=== PATIENT | female | born 1975 | race Caucasian/White ===

== ENCOUNTER 2018-02-17 06:50 | Observation (INO) | payer OTHER ==
[~2018-02-17] VITALS: Ht 165.1 cm; Wt 111.1 kg
[~2018-02-17 06:50] MED LIST: ACETAMINOPHEN-1 EAC1 PO; ASPIRIN EC81 MG PO; ATORVASTATIN CA40 MG PO; BELVIQ10 MG PO; CALCIUM600 MG PO; CELEBREX200 MG PO; GABAPENTIN400 MG PO; IRON325 M1 PO; KONDREMUL2.5 ML/5 M PO; MICARDIS HCT 41 EACH PO; MOTRIN IB200 MG PO; MULTIVITAMINS1 EAC7 PO; NORCO 5-325 TA1 EACH PO; PERCOCET 5-3251 EACH PO; SENNA8.6 MG PO; SIMVASTATIN10 MG PO; SIMVASTATIN40 MG PO; TELMISARTAN-HC1 EAC2 PO; TRAZODONE HCL50 MG PO; VITAMIN C1000 MG PO; VITAMIN D2000 UNI1 PO; VOLTAREN100 GM TOP
[2018-02-17] MEDS ORDERED: PHENTERMINE H37.5 MG PO (07:08)
--- NOTE | 2018-02-17 10:13 | NUR ---
PT ALERT, ORIENTED AND SUPPORTED BY HER SIG. OTHER MICHAEL. SHE SEEMED PREPARED FOR TODAY-EVEN WATCHED A VIDEO OF THE SURGERY. SHE IS LOOKING FORWARD TO LIFE WITH LESS PAIN AND MORE MOBILITY. HAVING BI-LATERAL KNEE REPLACEMENT. PT REQUESTED PRAYER, WILL FOLLOW NEEDED
--- NOTE | 2018-02-17 11:47 | NUR ---
02/17/18 1147 Dillan Lucio REORIENTED PT TO TIME AND SITUATION. DENIES NAUSEA OR PAIN. WARM BLANKTES REMOVED FROM PT AT THIS TIME SHE IS RED AND TEMP IS ELEVATED.
--- NOTE | 2018-02-17 13:10 | NUR ---
PT ARRIVED TO FLOOR FROM PACU, RECEIVE BEDSIDE REPORT FROM NATY PIERCE. PT IS VERY DROWSY BUT ORIENTED TO ALL. RT PRESENT IN ROOM TO APPLY BIPAP MACHINE PT IS HAVING APENEIC EPISODES PER PACU NURSE. PT TOLERATING BIPAP MASK WELL, SATTING 98% ON 38% FIO2, RESP 10-14. PT DENIE PAIN, NAUSEA OR OTHER CONCERNS. PT REPORTS SENSATION ALL THE WAY TO TIPS OF TOES, GOOD MOVEMENT NOTED, CAP REFILL 3, STRONG PEDAL PULSE BILATERALLY. DRESSING CDI BILATERALLY, TEDS, SCD'S, AND CRYOCUFFS IN PLACE. IV INFUSING IN RIGHT HAND WNL, FLUSHES EASILY. PT AT BEDSIDE. CALL LIGHT WITHIN REACH.
--- NOTE | 2018-02-17 14:15 | NUR ---
PT RESTING IN BED WITH EYES CLOSED, BIPAP ON SATTING 98%. PT WAKES EASILY. DENIES NEEDS OR CONCERNS AT THIS TIME. AT BEDSIDE.
--- NOTE | 2018-02-17 15:47 | NUR ---
PT OFF BIPAP AT THIS TIME PER REQUEST, PT MORE AWAKE AND ALERT. SATTING 91% ON 3LNC. PT DENIES PAIN OR OTHER CONCERNS. WORKING WITH P.T. AT THIS TIME, LUCIANA WELL. AT BEDSIDE. BILATERAL KNEE DRESSINGS REMAIN CDI. CALL LIGHT WITHIN REACH.
--- NOTE | 2018-02-17 16:57 | NUR ---
PT TRANSFERRED BACK TO BED AFTER WORKING WITH P.T. PT TRANSFERRED WITH WALKER TO [facility], VOIDED LARGE AMOUNT. SATTING 88% ON 3L NC, PLACED BACK ON BIPAP AT THIS TIME WHILE SLEEPING. PT DENIES PAIN AT THIS TIME, NAUSEA RESOLVED AFTER RECIEVING ZOFRAN. AT BEDSIDE. BILATERAL DRESSINGS REMAIN CDI, CRYO CUFFS, TEDS, AND SCD'S IN PLACE. CALL LIGHT WITHIN REACH.
[2018-02-17] MEDS ORDERED: MAG-OXIDE400 MG PO (17:09)
--- NOTE | 2018-02-17 18:00 | NUR ---
PT REPORTING 3/10 RIGHT KNEE PAIN. MEDICATED WITH 0.4MG IV DILAUDID. AND DAUGHTER AT BEDSIDE. DRESSINGS REMAIN CDI. CALL LIGHT WITHIN REACH.
--- NOTE | 2018-02-17 18:06 | NUR ---
PT SITTING UP IN RECLINER WITH WARM K-PACK TO BACK. ATE ALL OF DINNER, LUCIANA WELL. DENIES PAIN OR OTHER NEEDS OR CONCERNS AT THIS TIME. GIVEN FRESH WATER. CALL LIGHT WITHIN REACH.
--- NOTE | 2018-02-17 19:30 | NUR ---
BEDSIDE REPORT RECEIVED FROM KARI SANCHEZ. IVF INFUSING WNL. DRESSINGS CDI BILATERALLY, CRYO CUFFS IN PLACE, GHASSAN YAN, SCDS ON BILATERALLY. PT C/O PAIN IN RIGHT KNEE 02/09, PRN OXYCODONE PO ADMINISTERED. PT DENIES NAUSEA, EATING JELLO. SPO2 95% ON 3L OXYGEN, HR 77, CONT. PULSE OX ON. CALL LIGHT IN REACH.
--- NOTE | 2018-02-17 20:41 | NUR ---
ROUNDED CHARGE. PATIENT IS RESTING IN BED. PATIENT RATES PAIN AT A 5/10. PATIENT JUST RECEIVED PRN PAIN MEDICATION. PATIENT DENIES ANY COMMENTS, QUESTIONS, OR CONCERNS. NO NEEDS NOTED AT THIS TIME. CALL LIGHT IN REACH.
--- NOTE | 2018-02-17 22:20 | NUR ---
PT ASSESSMENT COMPLETE. CSM INTACT BLE, SOME TINGLING NOTED RLE. DRESSINGS CDI BILATERALLY, CRYO CUFFS WITH ICE BILATERALLY IN PLACE, GHASSAN HOSE AND SCDS ON. LUNGS CLEAR THROUGHOUT ALL LOBES. IV INFUSING WNL, FLUSHED WNL. PT RATES PAIN IN RIGHT KNEE /10, SCHEDULED TORADOL, GABAPENTIN ADMINISTERED. SATURATIONS WNL ON 3L OXYGEN BY NC, CONT. PULSE OX ON. PT HAS CALL LIGHT, PERSONAL SUPPLIES IN REACH. GIVEN ICE WATER REQUESTED.
--- NOTE | 2018-02-18 00:01 | NUR ---
CHECKED ON PT, APPEARS TO BE SLEEPING, EYES CLOSED. BREATHING NON-LABORED WITH BIPAP, SPO2 99%. SCDS, CRYO CUFFS IN PLACE. IVF INFUSING.
--- NOTE | 2018-02-18 01:30 | NUR ---
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 PT DENIES PAIN AT REST. 2PA WITH FWW TO PIVOT TO BSC W GAIT BELT. PT RATES PAIN 8-9/10 W AMBULATION, PRN OXYCODONE ADMINISTERED. 2PA BACK TO BED, BIPAP ON, CONT. PULSE OX. CRYO CUFFS REFILLED WITH ICE IN PLACE BILATERALLY. ASSESSMENT COMPLETE. PT STATES SOME NUMBNESS IN RIGHT FOOT. DRESSINGS CLEAN DRY AND INTACT, PULSES STRONG BILETERALLY LOWER EXTREMITIES. IVF INFUSING WNL. LUNGS CLEAR THROUGHOUT ALL LOBES. PT HAS PERSONAL SUPPLIES, CALL LIGHT IN REACH. IN ROOM.
--- NOTE | 2018-02-18 03:51 | NUR ---
CHECKED ON PT, PT AWAKE, ASSISTANCE WITH PUTTING BIPAP ON. PT DENIES PAIN, CALL LIGHT IN REACH. IVF INFUSING. SCDS, GHASSAN HEREDIA, CRYO CUFFS IN PLACE.
--- NOTE | 2018-02-18 04:14 | NUR ---
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 DENIES PAIN AT THIS TIME. BIPAP ON, SATURATIONS WNL ON CONT. PULSE OX. SCDS, CRYO CUFF, GHASSAN HOSE IN PLACE. CALL LIGHT IN REACH.
--- NOTE | 2018-02-18 06:24 | NUR ---
IN PT ROOM TO CHECK ON PT, PT AWAKE, SITTING UP IN BED. CHANDRAKANT CAMPBELL IN ROOM. IV SALINE LOCKED AT THIS TIME. PT DENIES NAUSEA. RATES PAIN 7-8/10 WITH MOVEMENT OF RIGHT LEG, PRN OXYCODONE ADMINISTERED. GHASSAN HOSE, HEEL PROTECTORS, SCDS IN PLACE BILATERALLY. CRYO CUFF REFILLED WITH ICE. CALL LIGHT IN REACH.
--- NOTE | 2018-02-18 06:48 | NUR ---
PAIN WELL CONTROLLED WITH PRN OXYCODONE. NO C/O NAUSEA THIS SHIFT, TOLERATING CLEAR LIQUIDS, DIET ADVANCED FOR BREAKFAST. IV SALINE LOCKED. DRESSINGS CDI THROUGHOUT SHIFT, CRYO CUFFS, SCDS, GHASSAN HOSE, AND HEEL PROTECTORS IN PLACE BILATERALLY LOWER EXTREMITIES, CSM INTACT WITH SOME NUMBNESS AND TINGLING BLE. 2PA TO PIVOT TO [facility] FOR VOIDS WITH FWW AND GAIT BELT. PT ON BIPAP WITH SLEEP, ROOM AIR WHILE AWAKE THIS SHIFT. SATURATIONS WNL, CONT. PULSE OXIMETER ON.
--- NOTE | 2018-02-18 07:42 | OR ---
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 PROCEDURE PERFORMED: Bilateral total knee arthroplasty with computer navigation. TUNNEL MINER: LETY York. Brissa was present in critical positioning, retraction, and wound closure. ANESTHESIA: Spinal. BLOOD LOSS: Minimal. TOURNIQUET TIME: Right 60 minutes, left 56 minutes. IMPLANTS: [place] Triathlon size 5 femur, 4 tibia, 9 mm polyethylene, and 35 patella on both sides. 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 She had undergone years of nonoperative treatment without recent relief. Risks, benefits, and alternatives were discussed at length and she would like to proceed with bilateral. DESCRIPTION OF PROCEDURE: Once consent was obtained, she was taken to the operating room. After adequate anesthesia, she was placed on operating table. All downside pressure points are well padded. A well-padded proximal thigh tourniquet was placed on both legs and both legs were prepped and draped in standard sterile fashion. The right leg was approached 1st, Electronically Signed By: LISA DIAZ MD 02/18/18 0742 PATIENT NAME: JD ALVAREZ OPERATIVE REPORT DATE OF : 71 REPORT #: [id number] PHYSICIAN: LISA DIAZ MD PCP: CHELO SMITH DO REPORT IS CONFIDENTIAL AND NOT TO BE RELEASED WITHOUT AUTHORIZATION [facility] [address] [place], [place] [address] Signed exsanguinated using Esmarch bandage. Tourniquet inflated 250 mmHg. Standard anterior approach through curved incision was taken through skin and subcutaneous tissue. Median parapatellar arthrotomy was performed. The infrapatellar fat pad was excised. The MCL was elevated around to the medial corner with cautery. The menisci were removed and the ACL was transected. The navigation guide was pinned to the distal femur and the femur was registered with the computer. There was a slight delay when the 1st computer set did not work and we had to change to another one. The cutting guide was then set in neutral alignment and set to cut 9 mm off the distal femur. The cut was made with care taken to protect the patellar tendon and MCL. The bone was excised. The distal femur sized to 5 and the 5 cutting block was pinned in alignment with epicondylar axis. The anterior, posterior, and chamfer cuts were made and all osteophytes were removed. The attention was then turned to the proximal tibia. Navigation guide again was then pinned to the proximal tibia and the tibia was registered with the computer. The cutting block was then pinned in neutral alignment and set to take 2 mm off the most involved posteromedial corner. The cut was made with care taken again to protect the patellar tendon and MCL. Bone was excised as were any meniscal remnants. Posterior osteophytes removed off the femur and the flexion-extension gaps were sized found to be symmetric at 9 mm. The trials were then positioned. Knee was taken through range of motion and found to be stable from 0-110 degrees of flexion. The patella was cut, sized, and drilled for a 35 patella. The distal femoral drill holes were then made and the proximal tibia was finished using the keel punch. The cement was mixed. When it reached proper consistency, placed on all bone surfaces and all implants. We did pulse lavaged the bone before placing the cement. The tibia was impacted in position first followed by the femur. The polyethylene was snapped into position. The knee was extended and nicely loaded. Patella was clamped and again any remaining cement was removed. The cement was allowed to harden. Once hardened sufficiently, the knee was flexed and the remaining overflow was removed using osteotomes. The knee was pulse lavaged at intervals throughout the procedure. A total of 3 L of antibiotic irrigation was used. The periarticular soft tissues were injected with 50 mL ropivacaine Toradol mixture. The arthrotomy was then closed using #1 Stratafix, 0 Stratafix for subcutaneous tissue, and cedric for the skin. The wound was dressed with Mepilex Ag dressing, ABD, and Giuseppe wrap. The leg was otherwise left alone. The left side was then approached next and all personnel changed their gloves. I changed my gown and we draped the other side out with a new set of drapes. The leg was exsanguinated and tourniquet was inflated again to 250 mmHg. The exact same procedure was performed with the same size implants. It was closed in the same manner. Both legs were then undraped and dressed with the new Giuseppe wrap. She was then awakened and taken to the recovery room in satisfactory condition. All sponge, needle, and instrument counts were correct. Electronically Signed By: LISA DIAZ MD 02/18/18 0742 PATIENT NAME: LENA ALVAREZWAYLON MCCLELLAN OPERATIVE REPORT DATE OF : 71 REPORT #: [id number] PHYSICIAN: LISA DIAZ MD PCP: CHELO SMITH DO REPORT IS CONFIDENTIAL AND NOT TO BE RELEASED WITHOUT AUTHORIZATION [address] [place] [address] Signed Lisa Diaz MD BA/MEENA /[id number] Copies: ~ Electronically Signed By: LISA DIAZ MD 02/18/18 0742 PATIENT NAME: JD ALVAREZ OPERATIVE REPORT DATE OF : 71 REPORT #: [id number] PHYSICIAN: LISA DIAZ MD PCP: CHELO SMITH DO REPORT IS CONFIDENTIAL AND NOT TO BE RELEASED WITHOUT AUTHORIZATION
--- NOTE | 2018-02-18 08:09 | NUR ---
PT ASLEEP DURING BEDSIDE REPORT FROM ARIANE PIERCE. WHITE BOARD UPDATED. ALL QUESTIONS ANSWERED. CRYOCUFF AND SCDs IN PLACE ON BILAT LOWER EXTREMITIES. PATIENT AWAKE NOW. BREAKFAST AND SCHEDULED MEDICATIONS DELIVERED. NO NAUSEA. PT REPORTS 3/10 PAIN. MORE IN RIGHT KNEE THAN LEFT. OXYCODONE GIVEN AT 0623 BY ARINAE PIERCE. O2 SATURATION 95% ON ROOM AIR. PATIENT'S THROAT IS HOARSE. PT REPORTS DRINKING WATER TO EASE DRY THROAT. DRESSING BILAT C/D/I. RAJAT WRAP IN PLACE. PEDAL PULSES +2 BILAT.
[2018-02-18] MEDS ORDERED: ULTRAM50 MG PO (10:16)
--- NOTE | 2018-02-18 10:16 | NUR ---
MED REC COMPLETE
--- NOTE | 2018-02-18 10:20 | NUR ---
THIS CNA2 SET PT UP FOR BRK, PICKED UP ROOM, REFILLED CRYO
--- NOTE | 2018-02-18 11:48 | NUR ---
PATIENT REPORTS INCREASE IN PAIN WITH NO RELIEF FROM OXYCODONE GIVEN AT 1030. DR LSIA CALLED. NEW ORDERS RECEIVED TO INCREASE OXYCODONE DOSE AND GIVE AN EXTRA DOSE NOW.
--- NOTE | 2018-02-18 11:55 | NUR ---
PT GETTING READY FOR P.T. HAD A QUICK WORD OF PRAYER, AND WILL FOLLOW UP WITH PT AFTER P.T.
--- NOTE | 2018-02-18 14:46 | NUR ---
PT JUST AWAKE FROM [facility]RN TONEY IN TO GIVE MEDS. PT ADMITTED SHE IS IN MORE PAIN THAN SHE EXPECTED, AND THAT P.T. WAS "BRUTAL". I REMINDED HER THAT SHE HAD A REASON AND A GOAL FOR THIS SURGERY. SHE SMILED, I OFFERED A PRAYER AND P.T. CAME IN FOR AFTERNOON SESSION. Jonna MONIQUE SAID SHE FELT PT WAS VERY MOTIVATED, AND FELT SHE WAS ON [employer]. WILL FOLLOW NEEDED
--- NOTE | 2018-02-18 16:52 | NUR ---
THIS DIRECTOR APPAREL TOOK PT TO THE BR, PUT BACK IN BED, PICKED UP ROOM
--- NOTE | 2018-02-18 17:49 | NUR ---
ROOM AIR TODAY. FIGHTING PAIN CONTROL MODERATELY. OXYCODONE INCREASED. TORADOL AND GABAPENTIN SCHEDULED. WORKING WITH PT/OT. CRYOCUFF, SCDs, AND TEDS IN PLACE. RAJAT WRAP BILAT KNEES C/D/I. SALINE LOCKED. TOLERATING REGULAR DIET.
--- NOTE | 2018-02-18 19:07 | NUR ---
BEDSIDE REPORT RECEIVED FROM KARI CLAYTON. PT AWAKE, LYING IN BED ON ROOM AIR. PRN PAIN MEDICATION ADMINISTERED BY RN. DRESSINGS CDI BILATERALLY, CRYO CUFFS IN PLACE, SCDS, GHASSAN HOSE, HEEL PROTECTORS ON. IV SALINE LOCKED. PERSONAL SUPPLIES AND CALL LIGHT IN REACH.
--- NOTE | 2018-02-18 19:56 | NUR ---
CRYO CUFFS REFILLED WITH ICE BILATERALLY. RT UNIQUE IN ROOM AT THIS TIME ASSESSING PT.
--- NOTE | 2018-02-18 21:15 | NUR ---
PT ASSESSMENT COMPLETE AT THIS TIME. PT REPORTS PAIN 10/10, CRYING. SCHEDULED TORADOL ADMINISTERED AT THIS TIME, PAIN DECREASES TO 8/10 PAIN AFTER ADMINISTRATION. 2PA TO BSC WITH FWW AND GAIT BELT FOR VOID, PT ASSISTED BACK TO BED, TOLERATED WELL. DRESSINGS CDI BILATERALLY, EXTREMITIES WARM, PULSES STRONG BILATERALLY. PT REPORTS SOME OCCASIONAL TINGLING BILATERALLY. HEEL PROTECTORS, SCDS, GHASSAN HOSE, AND CRYO CUFFS IN PLACE. LUNGS CLEAR THROUGHOUT ALL LOBES, SPO2 96% ON ROOM AIR, CONT. PULSE OX REMAINS IN PLACE PER RT UNIQUE. PT GIVEN ICE WATER REQUESTED. FRIENDS IN ROOM. CALL LIGHT IN REACH.
--- NOTE | 2018-02-18 22:18 | NUR ---
CALL LIGHT ANSWERED, PRN DILAUDID ADMINISTERED FOR PT REPORTED 7/10 PAIN IN RIGHT KNEE. NO ADDL REQUESTS, CALL LIGHT AND PERSONAL SUPPLIES IN REACH. PT ON ROOM AIR, SCDS, HEEL PROTECTORS, GHASSAN HOSE, AND CRYO CUFFS IN PLACE.
--- NOTE | 2018-02-18 22:45 | NUR ---
CALL LIGHT ANSWERED, PT C/O 04/11 PAIN IN RIGHT KNEE, PRN OXYCODONE ADMINISTERED AT THIS TIME. NO ADDL REQUESTS, CALL LIGHT AND PERSONAL SUPPLIES IN REACH.
--- NOTE | 2018-02-18 23:10 | NUR ---
CALL LIGHT ANSWERED, PT CONTINUES TO COMPLAIN OF PAIN, EDUCATION PROVIDED REGARDING PHARMACOKINETICS OF MEDCIATIONS. WILL CONTINUE TO CLOSESLY MONITOR CSM INTACT, DRESSING CDI, ICE IN CRYO CUFFS. CALL LIGHT IN REACH.
--- NOTE | 2018-02-18 23:40 | NUR ---
CHECKED ON PT, CRYING RATES PAIN 8.5/10 STATES "NEVER BEEN IN THIS MUCH PAIN". PHONE CALL TO MD, NOTIFIED OF PT'S PAIN, TELEPHONE ORDER TO INCREASE DILAUDID PRN DOSE TO 8MG Q4H PO AND TO GIVE DOSE NOW, ORDERS REPEATED BACK.
--- NOTE | 2018-02-18 23:55 | NUR ---
PRN DILAUDID ADMINISTERED AT THIS TIME, PT CONTINUES TO RATE PAIN 8.5/10 IN RIGHT KNEE, PAIN BILATERALLY. PT AWAKE, ON ROOM AIR. NO ADDL REQUESTS, SCDS, HEEL PROTECTORS, GHASSAN HOSE, CRYO CUFFS IN PLACE.
--- NOTE | 2018-02-19 01:30 | NUR ---
CHECKED ON PT, APPEARS TO BE SLEEPING, EYES CLOSED, BREATHING NON-LABORED, SPO2 93% ON ROOM AIR. SCDS, HEEL PROTECTORS, CRYO CUFFS AND GHASSAN HOSE IN PLACE.
--- NOTE | 2018-02-19 03:50 | NUR ---
IN PT ROOM FOR SCHEDULED PAIN MEDICATION ADMINISTRATION. PT AWAKENS EASILY. RATES PAIN 6/10 IN KNEES "BURNING". PRN OXYCODONE ADMINISTERED. 2PA WITH FWW AND GAIT BELT TO BSC FOR VOID AND BACK TO BED. DRESSINGS C/D/I BILATERALLY, CAP REFILL <3 SECONDS BILATERALLY, PEDAL PULSES STRONG BILATERALLY, SOME TINGLING NOTED BLE. CRYO CUFFS REFILLED WITH ICE. LUNGS CLEAR THROUGHOUT ALL LOBES. BOWEL TONES ACTIVE X 4. PT GIVEN ICE WATER. SPO2 WNL ON RA. CALL LIGHT IN REACH.
--- NOTE | 2018-02-19 04:02 | NUR ---
KARI THAKKAR AND I HELPED PATIENT USE THE COMMODE USING WALKER AND GAIT BELT. PATIENT IS BACK IN BED SCDS CRYO HEEL PROTECTOR AND CPOX ARE BACK ON. CALL LIGHT WITHIN REACH.
--- NOTE | 2018-02-19 05:08 | NUR ---
CHECKED ON PT, APPEARS TO BE SLEEPING AT THIS TIME, EYES CLOSED, BREATHING NON-LABORED. SPO2 95% ON RA. SCDS, HEEL PROTECTORS, CRYO CUFF, AND GHASSAN HOSE IN PLACE.
--- NOTE | 2018-02-19 05:34 | NUR ---
CALL LIGHT ANSWERED, PT C/O 04/11 PAIN BILATERALLY IN KNEES "BURNING". PRN DILAUDID ADMINISTERED AT THIS TIME. CRYO CUFFS IN PLACE WITH ICE, SCDS, GHASSAN HOSE, HEEL PROTECTORS ON. CALL LIGHT IN REACH.
--- NOTE | 2018-02-19 06:07 | NUR ---
PRN PAIN MEDICATION DOSE INCREASED BY MD THIS SHIFT, PAIN INCREASING W ACTIVITY. PRN AND SCHEDULED PAIN MEDICATIONS. SATURATIONS WNL ON ROOM AIR THROUGHOUT SHIFT, CONT. PULSE OXIMETER. 2PA TO PIVOT TO BS WITH FWW AND GAIT BELT. IV SALINE LOCKED WNL. SCDS, HEEL PROTECTORS, CRYO CUFFS IN PLACE THROUGHOUT SHIFT. DRESSINGS C/D/I BILATERALLY, CSM INTACT W TINGLING BLE.
--- NOTE | 2018-02-19 07:57 | NUR ---
PT AWAKE IN BED WATCHING TV. RATING BILATERAL KNEE PAIN 5/10 WHILE AT REST. MEDICATED WITH 15MG PRN OXY. PT DENIES NAUSEA OR OTHER CONCERNS. CONTINUOUS PULSE OX IN PLACE, PT SATTING 96% ON RA. PT DEMONSTRATES GOOD MOVEMENT OF LOWER EXTREMITIES, STRONG PEDAL PULSES BILATERALLY, 3 SEC CAP REFILL. BILATERAL DRESSING CDI, CRYO CUFFS, TEDS, SCD'S, AND HEEL PROTECTORS IN PLACE. PT SITTING UP GETTING READY TO EAT BREAKFAST. CALL LIGHT WITHIN REACH.
--- NOTE | 2018-02-19 09:51 | NUR ---
PHYSICAL THERAPY WORKING WITH PATIENT NOW. REPORTS 7/10 PAIN TO PHYSICAL THERAPIST. WILL CONSULT WITH PRIMARY NURSE ABOUT ANESTHESIOLOGIST PERFORMING BLOCK FOR PATIENT.
--- NOTE | 2018-02-19 10:40 | NUR ---
PT RESTING, HAS JUST FINISHED P.T. SHE SIMPLY SAID THE PAIN IS "INTENSE". DR LISA WAS IN EARLIER, CHANGED MEDS TO TRY AND GIVE PT SOME RELIEF. WILL FOLLOW NEEDED
--- NOTE | 2018-02-19 10:44 | NUR ---
PT LYING IN BED AFTER WORKING WITH P.T. RATING PAIN 6/10 AT REST AND STATES THAT PAIN WHILE GETTING UP AND DOWN IS "INTOLERABLE". NOTIFIED DR. LISA PT HAS ALREADY RECEIVED ALL ORDERED MEDS. RECIEVED ORDER FOR ANESTHESIA CONSULT FOR ADDUCTOR BLOCK. PT BILATERAL DRESSING CDI, DENIES ANY OTHER CONCERNS. CALL LIGHT WITHIN REACH.
--- NOTE | 2018-02-19 10:51 | NUR ---
PATIENT RESTING WITH EYES CLOSED. CALL BUTTON IN REACH. ICE IN CRYO. NO OTHER NEEDS AT THIS TIME.
--- NOTE | 2018-02-19 11:25 | NUR ---
NOTIFIED ISA MCCARTHY OF ADDUCTOR BLOCK ORDER.
--- NOTE | 2018-02-19 12:21 | NUR ---
GRACIE MCCARTHY AND QUITA RN IN ROOM PERFORMING ADDUCTOR BLOCK AT THIS TIME.
--- NOTE | 2018-02-19 13:15 | NUR ---
PT STATES PAIN HAS DECREASED "ABOUT 50%" AFTER RECEIVING ADDUCTOR BLOCK. MEDICATED AT THIS TIME WITH PRN OXY. RATES PAIN 4/10. PT SITTING AT EDGE OF BED AFTER USING COMMODE. BILATERAL KNEE DRESSINGS CHANGED AT THIS TIME. INSICIONS WELL APPROXIMATED, NO DRAINAGE NOTED, TROY VISIBLE AND INTACT. DRESSED WITH MEPILEX AND RAJAT WRAP. PT ASSISTED BACK INTO BED. CRYO CUFFS, TEDS, SCD'S, AND HEEL PROTECTORS IN PLACE. CALL LIGHT AND PERSONAL ITEMS WITHIN REACH.
--- NOTE | 2018-02-19 15:50 | NUR ---
PT WORKING WITH LUCIANA Coyle.
--- NOTE | 2018-02-19 16:30 | NUR ---
PT LYING IN BED WATCHING TV. RATING PAIN 6/10 AT REST. MEDICATED WITH PRN DILAUDID. DENIES FURTHER NEEDS OR CONCERNS. GOOD APPETITE THIS SHIFT, LUCIANA REG DIET, GOOD FLUID INTAKE. CALL BUTTON WITHIN REACH.
--- NOTE | 2018-02-19 18:10 | NUR ---
PT 1PA TO BSC TO VOID. BACK TO BED. RATING PAIN 7/10, MEDICATED WITH PRN OXY. DRESSINGS CDI. CRYOCUFF, TEDS, SCD'S, AND HEEL PROTECTORS IN PLACE. PT CONT TO MAINTAIN SATS ABOVE 90% ON RA. CALL LIGHT WITHIN REACH.
--- NOTE | 2018-02-19 19:25 | NUR ---
BEDSIDE HANDOFF REPORT RECEIVED FROM AIRCRAFT ENGINE MECHANIC SUPERVISOR RN. PT RESTING IN BED. PT REQUESTING ASSISTANCE TO BSC, 1PA. PT PROVIDED TIME, WILL CALL WHEN READY.
--- NOTE | 2018-02-19 20:30 | NUR ---
PT RESTING IN BED. PT GIVEN 8 MG PRN DILAUDID, PT RATING PAIN 8/10, TO BLE, PAIN MOSTLY TO RIGHT LEG, PT STATES PAIN WORSE AFTER ACTIVITY. PT ON ROOM AI, LUNG SOUNDS CLEAR, PULSE OX IN PLACE, O2 SATS 96%. PT DENIES NAUSEA, BOWEL TONES ACTIVE, TOLERATING REGULAR DIET. PT REPORT OF SOEM TINGLING TO BLE, STATES SHE HAS HAD IT SINCE NERVE BLOCKS THIS AFTERNOON, PULSES PALPABLE, ABLE TO DORSI/PLANTAR FLEX, WITHOUT EDEMA. DRESSING TO BILATERAL KNEES, CDI. CRYOCUFF, SCDS, GHASSAN HOSE AND HEEL PROTECTORS IN PLACE. DISCUSSED PLAN OF CARE FOR THE EVENING. PT REQUESTING TO BE WOKEN FOR PAIN MEDICATION THROUGHOUT THE NIGHT. PT DENIES OTHER NEEDS AT THIS TIME.
--- NOTE | 2018-02-19 21:35 | NUR ---
VITALS AND I&OS DONE AND CHARTED. FRESH ICE WATER GIVEN. BEDSIDE TABLE AND CALL LIGHT WITHIN REACH. PT NEEDS NOTHING ELSE AT THIS TIME.
--- NOTE | 2018-02-19 21:48 | NUR ---
PT GIVEN 15 MG PRN OXYCODONE, PT CONTINUES TO RATE PAIN AAMIR TO RIGHT LEG, DESCRIBES IT STINGING SENSATTION. PT ASSISTED TO BEDSIDE COMMODE AND BACK TO BED. CRYOCUFFS, SCDS, AND HEEL PROTECTORS IN PLACE. PT DENIES OTHER NEEDS AT THIS TIME.
--- NOTE | 2018-02-20 00:35 | NUR ---
PT PROVIDED WITH 8 MG PO DILAUDID. PT RATING PAIN 6/10 AT REST, STATES SHE WAS ABLE TO GET SOME SLEEP. CRYOCUFF ICE REFRESHED. PT DENIES OTHER NEEDS AT THIS TIME. WILL CONTINUE WITH PAIN MEDICATION SCHEDULE. PT INSTRUCTED TO NOTIFY RN IF PAIN BECOMES WORSE.
--- NOTE | 2018-02-20 02:00 | NUR ---
PT SLEEPING. AWAKEN FOR PAIN MEDICATION. PT RATING PAIN 4/10 AT REST, STATES PAIN "IS NOT TOO BAD". 15 MG PO OXYCODONE GIVEN. PT DENIES OTHER NEEDS AT THIS TIME.
--- NOTE | 2018-02-20 04:29 | NUR ---
PT GIVEN PO DILAUDID AND TYLENOL, PT RATING PAIN 7/10, PT STATES SHE WAS SLEEPING SOUNDLY AND WAS AWAKEN BY STINGING PAIN. PT REQUESTING ASSISTANCE TO BATHROOM. DRESSINGS TO BILATERAL KNEES CDI. PT WITH REPORT OF TINGLING TO RIGHT KNEE FROM KNEE TO MID GERMAIN. WIHTOUT EDEMA, PULSES PALPABLE. PT 1PA TO BATHROOM.
--- NOTE | 2018-02-20 05:57 | NUR ---
PT ON ROOM AIR, LUNG SOUNDS CLEAR. PT DENIES NAUSEA, BOWEL TONES ACTIVE, TOLERATING REGULAR DIET, BM OVERNIGHT. PT UP WITH 1PA TO BSC/ BATHROOM. PAIN WELL MANAGED WITH ALTERNATING DILAUDID AND OXYCODONE, PRN TYLENOL GIVEN. CRYOCUFF, SCDS, GHASSAN HOSE, HEEL PROTECTORS. CMS INTACT, REPORT OF TINGLING TO RIGHT KNEE AND GERMAIN. DRESSINGS TO BILATERLA KNEE, CDI. SALINE LOCKED. VOIDING QS.
--- NOTE | 2018-02-20 06:12 | NUR ---
VITALS AND I&OS DONE AND CHARTED. FRESH ICE WATER GIVEN. CRYO X'S 2 FILLED. BEDSIDE TABLE AND CALL LIGHT WITHIN REACH. PT NEEDS NOTHING ELSE AT THIS TIME.
--- NOTE | 2018-02-20 06:15 | NUR ---
PT RESTING IN BED. PT RATING PAIN 4/10 AT REST, GIVEN 15 MG PO OXYCODONE. PT DENIES OTHER NEEDS AT THIS TIME.
--- NOTE | 2018-02-20 08:26 | NUR ---
MORNING ASSESSMENT AND MEDICATIONS DUE. THIS RN TO BEDSIDE. PT UP IN BED, VISITING WITH . PT REPORTS 6/10 BILATERAL KNEE PAIN (SEE MAR FOR MEDICATIONS GIVEN). ASSESSMENT DONE. DRESSINGS CDI. CRYO CUFF, SCD'S, GHASSAN HOSE AND HEEL PROTECTORS IN PLACE. PT REPROTS "FEEING BETTER" TODAY. PT COMPLAINTS OF DRY NOSE AND IS USING CHAPSTICK FOR THIS PROBLEM. MEDICATIONS GIVEN. BED RAILS UP. CALL LIGHT WITHIN REACH. PT STATES "i THINK WITH THE MEDICATIONS THE PAIN WILL BE BETTER TODAY."
--- NOTE | 2018-02-20 08:40 | NUR ---
PT ASSISTED UP TO RESTROOM. PT UNWILLING TO MOVE LEGS ON HER OWN. PT ASSISTED NEEDED. PT USING WALKER TO BOOST HERSELF UP. PT ADVISED TO USE BED/RAILS BEHIND HER TO BOOST HERSELF UP AND THEN TRANSITION TO WALKER. PT UPSET BECAUSE "YOU'RE COMPLETELY RETEACHING ME!" PT ADVISED THAT WALKER IS UNSTABLE. EDUCATION DONE REGARDING HOW TO MOVE. PT WALKS WITH FWW TO RESTROOM. PT ON COMODE. PHYSICAL THERPIST CONSULTED. PHYSICAL THERPIST STATES THEY WILL REINFORCE EDUCATION REGARDING MOVING AND POSITIONING. PT FINISHED ON COMODE AND WORKING WITH PHYSICAL THERAPIST.
--- NOTE | 2018-02-20 10:11 | NUR ---
PATIENT C/O 04/11 KNEE PAIN AFTER WORKING WITH PHYSICAL THERAPY, PATIENT GIVEN 15MG OF OXYCODONE PO AT THIS TIME.
--- NOTE | 2018-02-20 11:12 | NUR ---
PT FAMILY TO NURSES STATION STATING PT IS IN "EXTREEM PAIN." THIS RN TO ROOM. PT STATES 10/10 "SHARP" PAIN IN HER RIGHT KNEE AND 5/10 PAIN IN HER LEFT KNEE. PT CRINGING AND CRYING. CMS ASSESSMENT DONE. CMS INTACT: STRONG PULSES, PINK IN COLOR, MOVMENT AND SENSATION INTACT. MD CALLED. NO ANSWER AT THIS TIME. PT BED RAILSUP. CALL LIGHT WITHIN REACH. CRYO CUFF, SCD'S, GHASSAN HOSE, AND HEEL PROTECTORS IN PLACE.
--- NOTE | 2018-02-20 11:19 | NUR ---
MD OFFICE CALLED. MESSAGE LEFT WITH CHARTER BOAT CAPTAIN.
--- NOTE | 2018-02-20 12:03 | NUR ---
REFILLED PATIENT'S CRYOS. PATIENT IS LAYING IN BED. SLOWLY EATING HER LUNCH. TAKING HER TO THE BATHROOM.
--- NOTE | 2018-02-20 12:13 | NUR ---
1-2PA INTO BSC IN BATHROOM. STEADY WHEN WALKING. NEEDS ASSIST GETTING LEGS OFF OF BED. PAINFUL RIGHT KNEE 05/12. DILAUDID AND TYLENOL GIVEN. GARBAGE CAN UNDER FEET WHILE ON COMMODE
--- NOTE | 2018-02-20 14:33 | NUR ---
PT REPORTS 4/10 PAIN IN LEFT KNEE. 6/10 IN RIGHT KNEE. LYING IN BED LEANING TOWARD RIGHT SIDE NOW. WATCHING TELEVISION. REPORTS FEELING SLIGHT IMPROVEMENT IN MOBILITY AND PAIN CONTROL EACH DAY. WILL HAVE HELP AT HOME FOR FIRST WEEK AFTER DISCHARGE BY FAMILY MEMBER.
--- NOTE | 2018-02-20 18:41 | NUR ---
STAYED ON SCHEDULE WITH PRN PAIN MEDS OF DILAUDID AND OXYCODONE AND PAIN BETTER CONTROLLED TODAY. WORKED WITH PHYSICAL THERAPY. GOT TO TOP OF STAIRS. POSSIBLY GO HOME TOMORROW. WARM PACKS TO HAMSTRINGS SEEMING TO HELP WITH LEG SPASMS.
--- NOTE | 2018-02-20 19:16 | NUR ---
HELPED GIVE HER A BED BATH. THIS AFTERNOON.
--- NOTE | 2018-02-20 19:20 | NUR ---
RECEIVED REPORT FROM RN. PATIENT IS RESTING IN BED WITH EYES CLOSED, FLACC SCORE OF 0. CALL LIGHT WITHIN REACH, ALL ORDERS IN PLACE.
--- NOTE | 2018-02-20 21:13 | NUR ---
PATIENT REPORTS 9/10 PAIN IN RIGHT KNEE, 4/10 PAIN IN LEFT KNEE, PRN DILAUDID GIVEN PER EMAR.
--- NOTE | 2018-02-20 22:10 | NUR ---
PATIENT REPORTS 8/10 PAIN IN RIGHT KNEE, 4/10 PAIN IN LEFT KNEE, PRN OXYCODONE AND TYLENOL GIVEN. PATIENT RESTING IN CHAIR WITH FEEL ELEVATED. PATIENT STATES "THE PAIN IS STARTING TO GET BETTER. IT IS NOT BAD IT WAS EARLIER." ASSESSMENT DONE, ALL ORDERS IN PLACE. PATIENT DENIES FURTHER NEEDS. CALL LIGHT WITHIN REACH, AT BEDSIDE.
--- NOTE | 2018-02-20 22:12 | NUR ---
VITALS AND I&OS DONE AND CHARTED. NOTIFIED KARI MARTIN OF HIGH B\P. PT NEEDS NOTHING ELSE AT THIS TIME. BEDSIDE TABLE AND CALL LIGHT WITHIN REACH.
--- NOTE | 2018-02-20 23:00 | NUR ---
PATIENT RESTING IN CHAIR, BREATHING IS EVEN AND UNLABORED. PATIENT STATES PAIN IN RIGHT KNEE IS NOW 6/10 AND PAIN IN LEFT KNEE IS 3/10. PATIENT STATES "IT IS STARTING TO CALM DOWN NOW." PATIENT DENIES FURTHER NEEDS. ALL ORDERS IN PLACE, CALL LIGHT WITHIN REACH.
--- NOTE | 2018-02-21 00:24 | NUR ---
PATIENT REPORTS 8/10 PAIN IN RIGHT KNEE, PRN DILAUDID GIVEN PER EMAR. PATIENT DENIES FURTHER NEEDS. BREATHING IS EVEN AND UNLABORED. ALL ORDERS IN PLACE, CALL LIGHT WITHIN REACH.
--- NOTE | 2018-02-21 01:41 | NUR ---
PATIENT RESTING COMFORTABLY IN BED, BREATHING IS EVEN AND UNLABORED. O2 SATURATION IS 92% ON ROOM AIR. FLACC SCORE OF 0. ALL ORDERS IN PLACE, CALL LIGHT WITHIN REACH.
--- NOTE | 2018-02-21 02:01 | NUR ---
PATIENT RESTING IN BED, BREATHING IS EVEN AND UNLABORED. O2 SATURATION IS 96% ON ROOM AIR, HEART RATE 81. REPORTS 6/10 PAIN IN RIGHT KNEE AND 4/10 PAIN IN LEFT KNEE. PRN OXYCODONE GIVEN. PATIENT DENIES FURTHER NEEDS AT THIS TIME. CALL LIGHT WITHIN REACH, ALL ORDERS IN PLACE.
--- NOTE | 2018-02-21 04:55 | NUR ---
PATIENT RESTING IN BED WITH EYES CLOSED, BREATHING IS EVEN AND UNLABORED. FLACC SCORE OF 0. CALL LIGHT WITHIN REACH, ALL ORDERS IN PLACE.
--- NOTE | 2018-02-21 06:00 | NUR ---
PATIENT UP TO BATHROOM WITH ASSISTANCE FROM , INDEPENDENT FROM NURSING STAFF. PATIENT RESTING IN BED NOW, BREATHING IS EVEN AND UNLABORED. REPORTS 7/10 PAIN IN RIGHT KNEE AND 5/10 PAIN IN LEFT KNEE, PRN OXYCODONE AND TYLENOL GIVEN. PATIENT STATES "MY PAIN IS NOT REALLY THAT BAD THIS MORNING." DENIES FURTHER NEEDS.
--- NOTE | 2018-02-21 07:20 | NUR ---
BEDSIDE HANDOFF REPORT RECEIVED FROM HAIRSPRING STAKER RN. PT RESTING IN BED. PLAN FOR PAIN MEDICATION AT 0800. PT DENIES OTHER NEEDS AT THIS TIME.
[2018-02-21] MEDS ORDERED: XARELTO10 MG PO (07:35)
[2018-02-21] MEDS ORDERED: MAPAP500 M1 PO (07:37)
[2018-02-21] MEDS ORDERED: HYDROMORPHONE HC4 MG PO (07:37)
[2018-02-21] MEDS ORDERED: MIRALAX17 GM PO (07:37)
[2018-02-21] MEDS ORDERED: NEURONTIN300 MG PO (07:37)
[2018-02-21] MEDS ORDERED: OXYCODONE HCL5 MG PO (07:37)
--- NOTE | 2018-02-21 08:00 | NUR ---
PT RESTING IN BED. PT RATING PAIN 4/10 TO LEFT KNEE AND 7/10 TO RIGHT KNEE, GIVEN 8 MG PO DILAUDID. PT ON ROOM AIR, LUNG SOUNDS CLEAR. PT TOLERATING REGULAR DIET, DENIES NAUSEA, BOWEL TONES ACTIVE, MIRALAX HELD. PT WITH BILATERAL KNEE DRESSING, CDI. GHASSAN HOSE, HEEL PROTECTORS, CRYOCUFF AND SCDS IN PLACE. PT WIHOUT EDEMA, CMS INTACT. PLAN FOR DISCHARGE AFTER PHYSICAL THERAPY TODAY. SOUSE GIVEN PRESCRIPTIONS TO BE FILLED AT PHARMACY. PT DENIES OTHER NEEDS AT THIS TIME.
--- NOTE | 2018-02-21 08:57 | NUR ---
WHILE PATIENT IS WORKING WITH PYSICAL THERAPY I CHANGED HER BED LINENS. CHECKED CRYOS THEY WERE FINE.
--- NOTE | 2018-02-21 11:11 | NUR ---
SPOKE WITH PATIENT WHILE WORKING WITH PT. PATIENT WILL DO OUTPATIENT THERAPY AT [facility].
--- NOTE | 2018-02-21 12:24 | NUR ---
AT 1146 THIS MORNING I HELPED PATIENT GATHER UP HER STUFF ALSO GOT HER NEW ICE WATER AND A HOT PACK TO GO HOME WITH HER. ALSO TOOK HER OUT TO HER CAR. HELPED GET HER INTO THE CAR. I STOOD BY IN CASE THEY NEEDED HELP.
--- NOTE | 2018-02-21 15:06 | NUR ---
ORDER AND CLINICALS FAXED TO [facility] AT [phone]. FAX CONFIRMATION RECEIVED AT [phone].
== END 2018-02-21 11:55 | disposition home or self-care (01) ==
LOC: DS 06:50 → MS 09:00 → EDSTATUS 09:00 → DSVR 10:03 → DS 10:04 → MS 13:09
PROVIDERS: ADMIT Specialist
PROC: 0SRC0J9 Replacement of Right Knee Joint with Synthetic Substitute, Cemented, Open Approach (ICD-10-PCS; 2018-02-17)
PROC: 8E0YXBZ Computer Assisted Procedure of Lower Extremity (ICD-10-PCS; 2018-02-17)
PROC: 3E0T3BZ Introduction of Anesthetic Agent into Peripheral Nerves and Plexi, Percutaneous Approach (ICD-10-PCS; 2018-02-17)
PROC: 3E0T33Z Introduction of Anti-inflammatory into Peripheral Nerves and Plexi, Percutaneous Approach (ICD-10-PCS; 2018-02-17)
PROC: 0SRD0J9 Replacement of Left Knee Joint with Synthetic Substitute, Cemented, Open Approach (ICD-10-PCS; principal; 2018-02-17 09:00)
PROC: 3E0T3BZ Introduction of Anesthetic Agent into Peripheral Nerves and Plexi, Percutaneous Approach (ICD-10-PCS; 2018-02-19)
PROC: 3E0T33Z Introduction of Anti-inflammatory into Peripheral Nerves and Plexi, Percutaneous Approach (ICD-10-PCS; 2018-02-19)
DX: M17.0 Bilateral primary osteoarthritis of knee (principal); G89.18 Other acute postprocedural pain; I10 Essential (primary) hypertension; E78.5 Hyperlipidemia, unspecified; E66.9 Obesity, unspecified; Z68.41 Body mass index [BMI] 40.0-44.9, adult; Z87.891 Personal history of nicotine dependence; Z79.1 Long term (current) use of non-steroidal anti-inflammatories (NSAID); Z79.82 Long term (current) use of aspirin; Z79.891 Long term (current) use of opiate analgesic; Z79.899 Other long term (current) drug therapy
CPT/HCPCS: 01402; 36415; 64447; 64450; 76942; 80048; 85025; 94660; 94762; 97110; 97116; 97161; 97530; C1713; C1776; G0378; J0690; J1100; J1170; J1885; J2250; J2274; J2405; J2704; J2795; J3010; J7120

== ENCOUNTER 2019-11-18 05:45 | Day surgery (SDC) | payer OTHER ==
[~2019-11-18] VITALS: Ht 165.1 cm; Wt 132.4 kg
--- NOTE | ~2019-11-18 | OR ---
[facility] [address] [place], [place] [address] Draft DATE OF OPERATION: 11/18/2019 SURGEON: Steven Grijalva DPM PREOPERATIVE DIAGNOSES: 1. First cuneiform fracture. 2. Displaced and inflamed orthopedic hardware. POSTOPERATIVE DIAGNOSES: 1. First cuneiform fracture. 2. Displaced and inflamed orthopedic hardware. PROCEDURES: 1. Removal of deep orthopedic implant, screws and plate. 2. ORIF of first cuneiform fracture and pseudarthrosis of the first metatarsal cuneiform. SMALL APPLIANCE ASSEMBLY SUPERVISOR: Devon Woo DPM. NURSE AIRPLANE FLIGHT ATTENDANT: Sebastien Dick. ANESTHESIA: Consisted of 17 mL of 1:1 mix of 2% lidocaine plain and 0.5% ropivacaine plain utilized as local and then the general was also utilized and a regional block. HEMOSTASIS: Ankle tourniquet. ESTIMATED BLOOD LOSS: Less than 5 mL or minimal. MATERIALS UTILIZED: 1. One external fixator with pins into the navicular and first metatarsal. 2. One 2.0 K-wire or expanding pin. 3. Bone putty, bone paste, with bone chips. 4. 3-0 Vicryl, 4-0 Vicryl, and 5-0 nylon. PROCEDURE IN DETAIL: The patient was brought into the operating room and placed upon the operating table in PATIENT NAME: JD ALVAREZ OPERATIVE REPORT DATE OF : 71 REPORT #: [id number] PHYSICIAN: STEVEN GRIJALVA DPM PCP: RITA ANDRADE PA-C REPORT IS CONFIDENTIAL AND NOT TO BE RELEASED WITHOUT AUTHORIZATION [facility] [address] [place], [place] [address] Draft the supine position. Regional block had been provided previously after IV sedation. Local anesthesia was also administered to the patient's left foot around the talonavicular joint area and posterior tibial nerve region. The foot was then scrubbed, prepped and draped in usual sterile technique. An Esmarch bandage was then utilized to exsanguinate the patient's left foot and left wrapped around the ankle to act as a tourniquet. Attention was then directed to the first metatarsal cuneiform joint region where a linear incision was performed, both parallel and medial to the tendon of extensor hallucis longus via the original skin incision that was made from the original bunion surgery. Incision was then deepened though the subcutaneous tissue with care being taken to identify and retract vital neurovascular structures. Bleeders were cauterized and ligated as necessary. Much of the subcutaneous tissue area was comprised of scar tissue formation and was somewhat of a type in nature. Careful dissection continued down to the level of the joint region and deep fascia. At this time, some fluid was encountered, that seemed to be possible seroma or fluid accumulation from chronic irritation. There was a mild dusky appearance to some of the surrounding soft tissue, likely from metal irritation, however, this did not seem to be significant or significantly compromised soft tissue structures. Upon completion of the dissection, the locking plate was identified. The distal screws into the first metatarsal were solid and has good bites still within the bone structures. The proximal screws that were originally placed into the first cuneiform they were loose and these screws were easily removed with just a pair of forceps without twisting. The plate was elevated away from the bone somewhat and its proximal portion and there was some scar tissue that was covered underneath the plate area here. Screwdriver was utilized to remove the fastened screws and the plate was then removed and passed to the operating table. Inspection of the surgical site was then observed. There was a pseudarthrosis that was apparent of the first metatarsal cuneiform joint region. There was a mild bone chip formation present in this area as well. This was from the original bone graft placement from the original bunion surgery. A portion of this bone chip has been removed previously and it appeared that there was no consolidation of this graft material within the first metatarsal cuneiform joint region. Inspection of the joint region did reveal rigid stability present. Careful dissection was advanced somewhat proximally to visualize the cuneiform little bit more. The fracture site was observed where the screws had been placed and it appeared that osseous fusion has started to cure at the cuneiform region. This appeared to be well solid and stable at this point and proper length of the first cuneiform has been maintained and so was determined at this time to now try and free up the fusion site here at the first cuneiform to reinforce it with internal fixation and also external fixation. Sagittal saw and K-wires were utilized to freshen the area at the base of the first metatarsal and the cuneiform joint region to mild bleeding. Next a bone Stimulan paste was injected into this area followed by some bone chip graft material. Prior to doing this, pseudarthrosis out first metatarsal was moved somewhat into a corrected position more lateral and a 2.0 K-wire was driven from the first metatarsal through the cuneiform and PATIENT NAME: JD ALVAREZ OPERATIVE REPORT DATE OF : 71 REPORT #: [id number] PHYSICIAN: STEVEN GRIJALVA DPM PCP: RITA ANDRADE PA-C REPORT IS CONFIDENTIAL AND NOT TO BE RELEASED WITHOUT AUTHORIZATION [facility] [address] [place], [place] [address] Draft into the navicular. Next, the bone putty and chips were then applied. The area was then closed over utilizing 3-0 Vicryl to close to the deep soft tissue, 4-0 Vicryl to reapproximate and coapt subcutaneous tissue, 5-0 nylon to reapproximate and coapt the integument. Next, an external fixator was then placed utilizing interoperative fluoroscopy, two pins were driven into the navicular in a vertical type orientation. Two pins were also driven in the first metatarsal in a transverse plain orientation. External fixator was applied and the pins were fastened down. Light compression was then applied across the medial ray with the external fixator. Again, placement was visualized utilizing intraoperative fluoroscopy. Following this, the surgical sites were then dressed with Betadine-soaked gauze wrapped around the pin formation. Adaptic and Betadine-soaked gauze applied over the surgical site. Fluff gauze was applied. Pins were also cut as needed. Jurgan ball was applied in the distal aspect of the 2-0 K-wire that was left in place for additional fixation. was applied appropriately followed by Gudelia. Ankle tourniquet was removed. Prompt hyperemic response was noted to all digits of the patient's left foot. The patient was then escorted to the recovery area by Anesthesia. The patient tolerated both the procedure and the anesthesia well and following a period of postoperative monitoring, the patient was discharged to home with both written and oral instructions. JIM Suh/MEENA /[id number] cc: Rita Andrade PA-C Copies: RITA ANDRADE PA-C ~ PATIENT NAME: JD ALVAREZ OPERATIVE REPORT DATE OF : 71 REPORT #: [id number] PHYSICIAN: STEVEN GRIJALVA DPM PCP: RITA ANDRADE PA-C REPORT IS CONFIDENTIAL AND NOT TO BE RELEASED WITHOUT AUTHORIZATION
[~2019-11-18 05:45] MED LIST changes: +CURCUMIN1 GM MISC; +HYDROMORPHONE HC4 MG PO; +MAG-OXIDE400 MG PO; +MAPAP500 M1 PO; +MICARDIS80 MG PO; +MIRALAX17 GM PO; +NABUMETONE500 MG PO; +NEURONTIN300 MG PO; +OMEGA 3 1,0001 EACH PO; +OXYCODONE HCL5 MG PO; +PHENTERMINE H37.5 MG PO; +POTASSIUM99 MG PO; +ULTRAM50 MG PO; +VALTREX500 MG PO; +XARELTO10 MG PO
== END 2019-11-18 13:30 | disposition home or self-care (01) ==
LOC: DS 05:45 → OPS 05:45 → DS 06:45 → OPS 06:45
PROVIDERS: Podiatrist Foot & Ankle Surgery
PROC: 0QSM04Z Reposition Left Tarsal with Internal Fixation Device, Open Approach (ICD-10-PCS; principal; 2019-11-18 06:45)
DX: T84.223A Displacement of internal fixation device of bones of foot and toes, initial encounter (principal); T84.69XA Infection and inflammatory reaction due to internal fixation device of other site, initial encounter; S92.241A Displaced fracture of medial cuneiform of right foot, initial encounter for closed fracture; Z79.82 Long term (current) use of aspirin; Z79.899 Other long term (current) drug therapy; E66.9 Obesity, unspecified; Z68.42 Body mass index [BMI] 45.0-49.9, adult; Z87.891 Personal history of nicotine dependence; Y83.8 Other surgical procedures as the cause of abnormal reaction of the patient, or of later complication, without mention of misadventure at the time of the procedure
CPT/HCPCS: 73620; 73630; J0690; J1100; J1200; J1885; J2001; J2250; J2405; J2704; J2765; J2795; J3010; J3475; J7121

== ENCOUNTER 2023-07-02 17:12 | Emergency (ER) | payer OTHER ==
[~2023-07-02] VITALS: Ht 165.1 cm; Wt 109.5 kg
[~2023-07-02 17:12] MED LIST changes: +ASPIRIN EC325 MG PO; +CO Q-10200 MG PO; +DICLOFENAC SODI75 MG PO; +GLYCOTROL CAPS1 EACH PO; +HYDROCODON-ACE1 EA11 PO; +MAGNESIUM100 MG PO; +OSTERA TABLET1 EACH PO; +PROZAC20 MG PO; +VIT C-ROSE HIP500 MG PO; +VITAMIN E OIL-V52 M1 TOP
[2023-07-02 17:59] VITALS: BP 142/94
== END 2023-07-02 18:06 | disposition home or self-care (01) ==
LOC: ED 17:12
DX: S60.222A Contusion of left hand, initial encounter (principal); I10 Essential (primary) hypertension; E66.9 Obesity, unspecified; Y04.2XXA Assault by strike against or bumped into by another person, initial encounter; Z87.891 Personal history of nicotine dependence; Z88.0 Allergy status to penicillin; Z79.82 Long term (current) use of aspirin; Z79.899 Other long term (current) drug therapy
CPT/HCPCS: 73130